=== PATIENT | female | born 1995 | race Caucasian/White ===

== ENCOUNTER 2016-03-01 09:04 | Outpatient (CLI) | END 2016-03-01 09:05 | disposition home or self-care (01) | LOC: LAB 09:04 | PROVIDERS: ATTEND Nurse Practitioner | DX: E10.65 Type 1 diabetes mellitus with hyperglycemia (principal) | CPT/HCPCS: 36415; 83036 ==

== ENCOUNTER 2016-06-13 13:37 | Outpatient (CLI) ==
[2016-06-13 13:59] LABS: BASOPHILS % (AUTO) 0.4 % (0.0-3.0); EOSINOPHILS # (AUTO) 0.4 K/ul (0.0-0.7); EOSINOPHILS % (AUTO) 4.4 % (0.0-7.0); HEMATOCRIT 39.7 % (37.0-47.0); HEMOGLOBIN 13.3 g/dl (12.0-16.0); IMMATURE GRANULOCYTE % (AUTO) 0.2 % (0.0-5.0); LYMPHOCYTES % (AUTO) 32.6 (10.0-50.0); MEAN CORPUSCULAR HEMOGLOBIN 30.4 pg (27.0-31.0); MEAN CORPUSCULAR HGB CONC 33.5 (31.8-35.4); MEAN CORPUSCULAR VOLUME 90.8 fl (81.0-99.0); MONOCYTES # (AUTO) 0.6 K/uL (0.4-2.0); NEUTROPHILS # (AUTO) 5.1 K/ul (2.0-6.9); NEUTROPHILS % (AUTO) 56.4; PLATELET COUNT 243 10^3/uL (140-440); RED BLOOD COUNT 4.37 10^6/ul (4.20-5.40); WHITE BLOOD COUNT 9.13 K/ul (4.6-10.2)
[2016-06-13 14:52] LABS: ALBUMIN 3.3 g/dL (3.4-5.0); ALBUMIN/GLOBULIN RATIO 1.14; BILIRUBIN,TOTAL 0.45 mg/dL (0.00-1.20); BUN/CREATININE RATIO 13.63; CALCIUM 8.9 mg/dL (8.2-10.2); CREATININE 0.66 mg/dL (0.60-1.30); TOTAL PROTEIN 6.2 g/dL (6.4-8.2)
[2016-06-14 08:15] LABS: URINE CREATININE 61.1 mg/dL (Not Estab.)
[2016-06-18 11:40] LABS: URINE MALB/CR RATIO 39.1 mg/g creat (0.0-30.0)
== END 2016-06-13 13:38 | disposition home or self-care (01) ==
LOC: LAB 13:37
PROVIDERS: ATTEND Nurse Practitioner
DX: E10.65 Type 1 diabetes mellitus with hyperglycemia (principal); R25.2 Cramp and spasm
CPT/HCPCS: 36415; 80053; 82043; 82306; 82607; 83036; 83735; 84443; 85025